=== PATIENT | female | born 1965 | race Caucasian/White ===

== ENCOUNTER → 2017-07-28 | Outpatient (CLI) | payer OTHER ==
[~2017-07-28] MED LIST: DIAZ5 PO; DUONSOL2 NEB; LORTA5 PO
--- NOTE | 2017-08-02 09:04 | RSPPFT ---
DATE OF PROCEDURE: 07/28/17 COMMENTS: Spirometry demonstrates an FEV1 of 1.0 at 39% of predicted, FVC of 1.7 at 53%, FEF 25-75 at 19%. Post-bronchodilator study demonstrated remarkable improvements in all the spirometric values. Lung volumes demonstrated a raised RV/TLC ratio indicating hyperinflation with air trapping. Diffusion capacity is normal. Flow volume loops suggest an obstructive defect. IMPRESSION: 1. Moderately severe obstructive disease. 2. Significant response to use of bronchodilator indicating reversibility. 3. Normal diffusion capacity.
== END ==
LOC: HRSP 10:02
DX: J45.909 Unspecified asthma, uncomplicated (principal); R06.00 Dyspnea, unspecified
CPT/HCPCS: 36600; 82805; 94060; 94726; 94729